=== PATIENT | female | born 1990 | race Caucasian/White ===

== ENCOUNTER → 2019-02-02 | Outpatient (CLI) | payer OTHER ==
[2019-02-02 11:42] LABS: BASOPHIL % 0.5 % (0-2); PLATELET COUNT 296 x10^3mcL (130-400)
[2019-02-02 11:45] LABS: RED CELL DISTRIBUTION WIDTH 16.1 % (11.5-14.5)
[2019-02-02 12:09] LABS: ALKALINE PHOSPHATASE 101 U/L (46-116); ALT/SGPT 40 U/L (14-59); AST/SGOT 24 U/L (15-37); BILIRUBIN DIRECT 0.06 mg/dL (0.0-0.2); BILIRUBIN TOTAL 0.2 mg/dL (0.20-1.00); CALCIUM 8.8 mg/dL (8.5-10.1); CARBON DIOXIDE 26.9 mmol/L (21-32); CHLORIDE SERUM 105 mmol/L (98-107); CHOLESTEROL 195 mg/dL (<200); CHOLESTEROL/HDL RATIO 4.3; CREATININE SERUM 0.7 mg/dL (0.6-1.0); GFR1 > 60 mL/min; GLUCOSE SERUM 96 mg/dL (74-106); HDL CHOLESTEROL 45 mg/dL (40-60); POTASSIUM SERUM 4.1 mmol/L (3.5-5.1); SODIUM SERUM 142 mmol/L (136-145); TOTAL PROTEIN, SERUM 7.5 g/dL (6.4-8.2); TRIGLYCERIDES 175 mg/dL (<150)
[2019-02-02 12:10] LABS: ALBUMIN 3.2 g/dL (3.4-5.0)
== END | disposition home or self-care (01) ==
LOC: LB 11:08
PROVIDERS: Internal Medicine
DX: Z00.00 Encounter for general adult medical examination without abnormal findings (principal)

== ENCOUNTER 2019-08-11 11:28 | Emergency (ER) | payer OTHER ==
[~2019-08-11] VITALS: Ht 157.5 cm; Wt 109.8 kg
[2019-08-11 11:52] VITALS: Ht 157.5 cm; Wt 109.8 kg
[2019-08-11 14:28] VITALS: BP 129/68
== END 2019-08-11 14:28 | disposition home or self-care (01) ==
LOC: ED 11:28
DX: R06.00 Dyspnea, unspecified (principal); Z20.828 Contact with and (suspected) exposure to other viral communicable diseases
CPT/HCPCS: Q0092; U0003-CS